=== PATIENT | male | born 1990 | race Caucasian/White ===

== ENCOUNTER 2018-07-06 03:10 | Emergency (ER) | payer OTHER ==
[2018-07-06 03:24] VITALS: BP 141/79
--- NOTE | 2018-07-06 03:53 | ER Document Report ---
ED General - General Chief Complaint: Body Fluid Exposure Stated Complaint: BLOOD EXPOSURE DURING EMS CALL Time Seen by Provider: 07/06/18 03:42 Notes: Patient is a 27-year-old male who presents with complaint of having blood splashed in his eye. Patient is a dramatic. He said the small droplet of blood went into his eye when the patient coughs. He has no other concerns or any other exposures. No blood in his mouth. No needle sticks. He is otherwise healthy. No other complaints at this time. It is unknown if the patient he was exposed to has HIV or hepatitis. Patient flushed his eyes several times after the incident. TRAVEL OUTSIDE OF THE [place] IN LAST 30 DAYS: No Past Medical History - Social History Smoking Status: Never Smoker Frequency of alcohol use: None Drug Abuse: None Family History: Reviewed & Not Pertinent Review of Systems - Review of Systems Notes: My Normal Review Basic REVIEW OF SYSTEMS: CONSTITUTIONAL : Denies fever, chills, or sweats. Denies recent illness. EENT: Droplet of blood splashed in the patient's eye. NEUROLOGICAL: Denies altered mental status or loss of consciousness. ALL OTHER SYSTEMS REVIEWED AND NEGATIVE. Physical Exam - Vital signs Vitals: Temp Pulse Resp BP Pulse Ox 98.1 F 74 14 141/79 H 99 07/06/18 03:22 07/06/18 03:22 07/06/18 03:22 07/06/18 03:22 07/06/18 03:22 - Notes Notes: General Appearance: Well nourished, alert, cooperative, no acute distress, no obvious discomfort. Vitals: reviewed, See vital signs table. Head: no swelling or tenderness to the head Eyes: PERRL, EOMI, Conjuctiva clear Mouth: No decreasd moisture Neuro: speech clear, oriented x 3, normal affect, responds appropriately to ques tions. Course - Re-evaluation Re-evalutation: 07/06/18 07:17 I did write prescriptions for prophylactic treatment for potential HIV. Informed patient will call immediately should his HIV testing came back. Mr. Barrera and the patient was caring for his HIV testing did come back negative. I did call him and informed him that he does not have to take the prophylactic HIV treatment. I will call him again when the hepatitis panel results are back. Patient's phone number is [phone]. The patient he was exposed to his [place] [employer]. 07/06/18 07:19 Dictation of this chart was performed using voice recognition software; therefore, there may be some unintended grammatical errors. - Vital Signs Vital signs: Temp Pulse Resp BP Pulse Ox 98.1 F 74 14 141/79 H 99 07/06/18 03:22 07/06/18 03:22 07/06/18 03:22 07/06/18 03:22 07/06/18 03:22 Discharge - Discharge Clinical Impression: Exposure to blood Condition: Good Disposition: HOME, SELF-CARE Additional Instructions: I have ordered HIV testing on the patient were exposed to. I will call you with the results. If they are positive then you should start the medications that are prescribed. These medications can sometimes cause elevation of liver enzymes. You should therefore should have your liver enzymes checked after 2 weeks of taking them. The medication should be taken for 4 weeks total. At the end of 4-week course he should be rechecked for any evidence of HIV and your blood via blood testing. The medications can also cause nausea. I have prescribed Zofran that he can take if you start feeling nauseous from her medications. Return to the ER if you have any further concerns. Prescriptions: Emtricitabine/Tenofovir (Tdf) [Truvada 133 mg-200 mg Tablet] 1 each PO DAILY #28 tablet Ondansetron [Zofran Odt 4 mg Tablet] 1 tab PO Q4H PRN #20 tab.rapdis PRN Reason: For Nausea/Vomiting RX: Raltegravir Potassium [Isentress Hd] 1,200 mg PO DAILY #56 tablet
[2018-07-08 07:42] LABS: HEPATITIS A AB IGM Negative (Negative); HEPATITIS B CORE AB IGM Negative (Negative); HEPATITS B SURFACE ANTIGEN Negative (Negative)
[2018-07-08 09:33] LABS: HEPATITIS C VIRUS ANTIBODY <0.1 s/co ratio (0.0-0.9)
== END 2018-07-06 04:08 | disposition home or self-care (01) ==
LOC: ER 03:10
DX: Z77.21 Contact with and (suspected) exposure to potentially hazardous body fluids (principal)
CPT/HCPCS: 36415; 80074; 86701; 99283